=== PATIENT | male | born 1955 | race Two or more races ===

== ENCOUNTER 2018-03-17 21:59 | Observation (INO) | payer OTHER ==
[~2018-03-17] VITALS: Ht 182.9 cm; Wt 88.5 kg
[2018-03-17] MEDS ORDERED: ALBUTEROL SULF 2.5 MG/0.5ML(0.5%) NEB SOLN NEB ONE (23:00)
[2018-03-17] MEDS ORDERED: IPRATROPIUM BROM 0.5 MG/2.5ML INH SOL NEB ONE (23:00)
[2018-03-17 23:10] LABS: Basophils # (auto) 0 uL; Basophils % (auto) 0.7 % (0.0-2.0); Eosinophils # (auto) 0.2 uL; Eosinophils % (auto) 3.5 % (0.0-7.0); Hematocrit 48.1 % (41.0-53.0); Hemoglobin 15.6 g/dL (13.5-17.5); Lymphocytes # (auto) 0.7 uL; Lymphocytes % (auto) 11.2 % (10.0-50.0); Mean Corpuscular Hemoglobin 28.8 pg (28.0-32.0); Mean Corpuscular Hgb Conc. 32.5 g/dL (32.0-36.0); Mean Corpuscular Volume 88.6 fL (80.0-100.0); Monocytes # (auto) 0.5 uL; Monocytes % (auto) 7.2 % (0.0-12.0); Neutrophils % (auto) 77.4 % (37.0-80.0); Nucleated Red Blood Cells % 0.1 %; Platelet Count (auto) 113 10^3/uL (140-450); Red Blood Cells 5.43 10^6/uL (4.5-5.90); Red Cell Distribution Width 13.9 % (11.8-14.3); White Blood Cell 6.5 10^3/uL (4.4-10.8)
[2018-03-17 23:26] LABS: INR 1.01 (0.9-1.15); Prothrombin Time 10.8 sec (9.27-12.13)
[2018-03-17 23:30] LABS: Alanine Aminotransferase 44 U/L (16-61); Albumin 3.2 g/dL (3.4-5.0); Anion Gap 6 (5-15); Aspartate Aminotransferase 40 U/L (15-37); BUN/Creatinine Ratio 23.2; Blood Urea Nitrogen 29 mg/dL (7-18); Calcium 8.5 mg/dL (8.5-10.1); Carbon Dioxide 33 mmol/L (21-32); Chloride 97 mmol/L (98-107); GFR African American 75 mL/min; GFR Non-African American 62 mL/min; Glucose 89 mg/dL (74-106); Magnesium 1.8 mg/dL (1.6-2.6); Potassium 4.9 mmol/L (3.5-5.1); Sodium 136 mmol/L (136-145)
[2018-03-17 23:35] LABS: Alkaline Phosphatase 57 U/L (45-117); Bilirubin, Total 0.3 mg/dL (0.2-1.0); Total Protein 8.7 g/dL (6.4-8.2)
[2018-03-18] MEDS ORDERED: OXYMETAZOLINE HCL 0.05 % NASAL SPRAY 15ML ONE ×2 (02:22→03:00)
[2018-03-18] MEDS ORDERED: COCAINE HCL 4% TOP SOL 4ML TOP ONE ×2 (02:42→02:45)
[2018-03-18] MEDS ORDERED: METHADONE HCL 10 MG TAB PO ONE (04:30)
[2018-03-18 05:33] VITALS: BP 167/87
== END 2018-03-18 07:15 | disposition home or self-care (01) | DRG 115 ==
LOC: EDBD 21:59 → ER 22:06 → EDBD 22:06 → OVERFLOW 22:07 → ER 03-18 07:15
PROVIDERS: ADMIT Emergency Medicine; ATTEND Emergency Medicine
DX: R04.0 Epistaxis (principal); B17.10 Acute hepatitis C without hepatic coma; J44.1 Chronic obstructive pulmonary disease with (acute) exacerbation; E11.9 Type 2 diabetes mellitus without complications; J98.19 Other pulmonary collapse
CPT/HCPCS: 36415; 71045; 80053; 83735; 83880; 84443; 84484; 85025; 85379; 85610; 85730; 94640; 99285; G0378

== ENCOUNTER 2018-03-19 12:02 | Emergency (ER) | payer OTHER ==
[~2018-03-19] VITALS: Ht 182.9 cm; Wt 88.5 kg
[2018-03-19] MEDS ORDERED: IPRATROPIUM BROM 0.5 MG/2.5ML INH SOL NEB ONE (13:30)
[2018-03-19] MEDS ORDERED: ALBUTEROL SULF 2.5 MG/0.5ML(0.5%) NEB SOLN NEB ONE (13:30)
[2018-03-19] MEDS ORDERED: methylPREDNISolone SOD SUCC 125 MG/2 ML VL IM ONE (13:30)
[2018-03-19 14:52] VITALS: BP 110/67
== END 2018-03-19 15:13 | disposition home or self-care (01) ==
LOC: ER 12:02
DX: J44.9 Chronic obstructive pulmonary disease, unspecified (principal); E11.9 Type 2 diabetes mellitus without complications; Z48.01 Encounter for change or removal of surgical wound dressing
CPT/HCPCS: 93005; 94644; 96372; 99284; J2930

== ENCOUNTER 2019-05-27 01:25 | Emergency (ER) | payer OTHER ==
[~2019-05-27] VITALS: Ht 180.3 cm; Wt 82.6 kg
[2019-05-27] MEDS ORDERED: COCAINE HCL 4% TOP SOL 4ML TOP ONE ×3 (02:44→04:45)
[2019-05-27 03:21] LABS: Basophils # (auto) 0 uL; Basophils % (auto) 0.3 % (0.0-2.0); Eosinophils # (auto) 0.4 uL; Hemoglobin 13.3 g/dL (13.5-17.5); Lymphocytes # (auto) 0.9 uL; Mean Corpuscular Hgb Conc. 32.4 g/dL (32.0-36.0); Mean Corpuscular Volume 86.6 fL (80.0-100.0); Monocytes # (auto) 0.5 uL; Monocytes % (auto) 7.8 % (0.0-12.0); Neutrophils # (auto) 4.2 uL; Neutrophils % (auto) 69.9 % (37.0-80.0); Nucleated Red Blood Cells % 0.1 %; Platelet Count (auto) 144 10^3/uL (140-450); Red Blood Cells 4.74 10^6/uL (4.5-5.90); Red Cell Distribution Width 13.2 % (11.8-14.3)
[2019-05-27 03:37] LABS: Albumin 3.5 g/dL (3.4-5.0); BUN/Creatinine Ratio 21.4; Calcium 8.5 mg/dL (8.5-10.1); Potassium 4.8 mmol/L (3.5-5.1)
[2019-05-27 03:40] LABS: Bilirubin, Total 0.2 mg/dL (0.2-1.0); Total Protein 8.8 g/dL (6.4-8.2)
[2019-05-27 04:20] LABS: INR 0.97 (0.9-1.15); Partial Thromboplastin Time 26.8 sec (23.64-32.05)
[2019-05-27 05:43] VITALS: BP 155/82
== END 2019-05-27 06:07 | disposition home or self-care (01) ==
LOC: ER 01:29
DX: R04.0 Epistaxis (principal); E86.0 Dehydration; J44.9 Chronic obstructive pulmonary disease, unspecified; E11.9 Type 2 diabetes mellitus without complications
CPT/HCPCS: 30901; 36415; 80053; 85025; 85610; 85730

== ENCOUNTER 2019-05-28 17:54 | Emergency (ER) | payer OTHER ==
[2019-05-28 21:08] LABS: Basophils # (auto) 0.1 uL; Basophils % (auto) 0.4 % (0.0-2.0); Eosinophils # (auto) 0 uL; Hematocrit 43.5 % (41.0-53.0); Lymphocytes # (auto) 0.9 uL; Lymphocytes % (auto) 6.6 % (10.0-50.0); Mean Corpuscular Hemoglobin 27.6 pg (28.0-32.0); Mean Corpuscular Hgb Conc. 32.2 g/dL (32.0-36.0); Mean Corpuscular Volume 85.6 fL (80.0-100.0); Monocytes % (auto) 7.3 % (0.0-12.0); Neutrophils # (auto) 11.6 uL; Neutrophils % (auto) 85.7 % (37.0-80.0); Platelet Count (auto) 182 10^3/uL (140-450); Red Blood Cells 5.08 10^6/uL (4.5-5.90); Red Cell Distribution Width 13.2 % (11.8-14.3); White Blood Cell 13.6 10^3/uL (4.4-10.8)
[2019-05-28 21:37] LABS: INR 0.99 (0.9-1.15); Partial Thromboplastin Time 27.1 sec (23.64-32.05)
[2019-05-29] MEDS ORDERED: COCAINE HCL 4% TOP SOL 4ML TOP ONE (00:15)
[2019-05-29 06:01] VITALS: BP 137/68
== END 2019-05-29 07:01 | disposition home or self-care (01) ==
LOC: ER 17:54 → EDBD 17:54 → ER 05-29 07:01
DX: R04.0 Epistaxis (principal)
CPT/HCPCS: 30901; 36415; 73030; 85025; 85610; 85730

== ENCOUNTER → 2022-01-21 | Emergency (ER) | payer OTHER ==
[~2022-01-21] VITALS: Ht 180.3 cm; Wt 87.1 kg
[~2022-01-21] MED LIST: ACET-1080 PO; ACETAMINOPHEN 500 MG TAB PO ONE; IBUP800T27 PO
[2022-01-21 16:23] VITALS: BP 129/72
== END | disposition home or self-care (01) ==
LOC: ER 15:30
DX: M51.16 Intervertebral disc disorders with radiculopathy, lumbar region (principal); M48.061 Spinal stenosis, lumbar region without neurogenic claudication
CPT/HCPCS: 72131

== ENCOUNTER 2022-03-07 15:51 | Emergency (ER) | payer OTHER ==
[~2022-03-07] VITALS: Ht 180.3 cm; Wt 84.0 kg
[~2022-03-07 15:51] MED LIST changes: -ACETAMINOPHEN 500 MG TAB PO ONE; -IBUP800T27 PO
[2022-03-07 17:39] LABS: Basophils # (auto) 0 10 ^3/uL (0-0.2); Eosinophils # (auto) 0 10 ^3/uL (0-0.8); Hemoglobin 11.7 g/dL (13.5-17.5); Lymphocytes # (auto) 0.5 10 ^3/uL (0.4-5.4); Mean Corpuscular Hgb Conc. 30.3 g/dL (32.0-36.0); Mean Corpuscular Volume 81.7 fL (80.0-100.0); Monocytes # (auto) 0.3 10 ^3/uL (0-1.3)
[2022-03-07 17:41] LABS: Basophils % (auto) 0.4 % (0.0-2.0); Hematocrit 38.5 % (41.0-53.0); Mean Corpuscular Hemoglobin 24.8 pg (28.0-32.0); Neutrophils # (auto) 9.5 10 ^3/uL (1.6-8.6); Neutrophils % (auto) 91.6 % (37.0-80.0); Red Blood Cells 4.71 10^6/uL (4.5-5.90); Red Cell Distribution Width 16.5 % (11.8-14.3); White Blood Cell 10.4 10^3/uL (4.4-10.8)
[2022-03-07 17:55] LABS: Albumin 2.4 g/dL (3.4-5.0); Potassium 4.3 mmol/L (3.5-5.1)
[2022-03-07 17:58] LABS: BUN/Creatinine Ratio 24.6; Bilirubin, Total 0.4 mg/dL (0.2-1.0); Total Protein 7.9 g/dL (6.4-8.2)
[2022-03-07 20:30] VITALS: BP 137/71
[2022-03-07 20:57] LABS: Urine WBC None Seen /hpf (0 - 3)
[2022-03-07 21:07] LABS: Urine Bacteria NONE SEEN /hpf (None Seen); Urine Blood Negative /uL (Negative); Urine Specific Gravity 1.014 (1.001-1.035)
== END 2022-03-07 22:05 | disposition home or self-care (01) ==
LOC: EDBD 15:51 → ER 15:51
DX: K40.20 Bilateral inguinal hernia, without obstruction or gangrene, not specified as recurrent (principal); E11.9 Type 2 diabetes mellitus without complications; J44.9 Chronic obstructive pulmonary disease, unspecified; Z79.899 Other long term (current) drug therapy
CPT/HCPCS: 36415; 71045; 74176; 80053; 81001; 83880; 84484; 85025; 93005

== ENCOUNTER 2022-09-30 15:28 | Inpatient (IN) | payer OTHER ==
[~2022-09-30] VITALS: Ht 177.8 cm; Wt 68.7 kg
[2022-09-30 16:11] LABS: Basophils # (auto) 0 10 ^3/uL (0-0.2); Eosinophils # (auto) 0 10 ^3/uL (0-0.8); Neutrophils # (auto) 14.5 10 ^3/uL (1.6-8.6); White Blood Cell 15.9 10^3/uL (4.4-10.8)
[2022-09-30 16:12] LABS: Eosinophils % (auto) 0.1 % (0.0-7.0); Hematocrit 42.8 % (41.0-53.0); Hemoglobin 13.2 g/dL (13.5-17.5); Lymphocytes # (auto) 0.3 10 ^3/uL (0.4-5.4); Lymphocytes % (auto) 2.1 % (10.0-50.0); Mean Corpuscular Hemoglobin 24.9 pg (28.0-32.0); Mean Corpuscular Volume 80.4 fL (80.0-100.0); Monocytes % (auto) 6.2 % (0.0-12.0); Neutrophils % (auto) 91.6 % (37.0-80.0); Nucleated Red Blood Cells % 0.2 %; Red Blood Cells 5.32 10^6/uL (4.5-5.90); Red Cell Distribution Width 17.2 % (11.8-14.3)
[2022-09-30 16:33] LABS: Albumin 2.2 g/dL (3.4-5.0); Anion Gap 9 (5-15); BUN/Creatinine Ratio 29.3; Blood Urea Nitrogen 43 mg/dL (7-18); Calcium 9.3 mg/dL (8.5-10.1); Carbon Dioxide 30 mmol/L (21-32); Chloride 99 mmol/L (98-107); GFR African American 61 mL/min; GFR Non-African American 51 mL/min; Glucose 92 mg/dL (74-106); Magnesium 1.7 mg/dL (1.6-2.6); Potassium 4.4 mmol/L (3.5-5.1); Sodium 138 mmol/L (136-145)
[2022-09-30 16:35] LABS: Lactic Acid w/Reflex 5.2 mmol/L (0.4-2.0)
[2022-09-30 16:54] LABS: Alanine Aminotransferase 76 U/L (16-61); Alkaline Phosphatase 89 U/L (45-117); Aspartate Aminotransferase 124 U/L (15-37); Bilirubin, Total 1.4 mg/dL (0.2-1.0); CRP High Sensitivity > 19.0 mg/dL (< 0.3); Total Protein 8.1 g/dL (6.4-8.2)
[2022-09-30] MEDS ORDERED: PIPERACILLIN-TAZOB 3.375GM 100 ML IV ONE (17:15)
[2022-09-30 17:34] LABS: Blood Alcohol < 3.0 mg/dL (0-5); Creatine Kinase IFCC 87 U/L (39-308)
[2022-09-30] MEDS ORDERED: SODIUM CHLORIDE 0.9% 1,900 ML IV ONE (17:45)
[2022-09-30] MEDS ORDERED: DexAMETHasone SOD PHOS 10MG/1ML VIAL INJ ONE (19:57)
[2022-09-30] MEDS ORDERED: IPRATROPIUM BROM 0.5 MG/2.5ML INH SOL NEB ONE (20:15)
[2022-09-30] MEDS ORDERED: ALBUTEROL SULF 2.5 MG/0.5ML(0.5%) NEB SOLN NEB ONE (20:15)
[2022-09-30] MEDS ORDERED: DexAMETHasone SOD PHOS 10MG/1ML VIAL INJ IV ONE (20:15)
[2022-09-30] MEDS ORDERED: ALBUMIN 5% 250 ML IV ONE (21:30)
[2022-09-30] MEDS ORDERED: NITROGLYCERIN 0.4 MG SL TAB SL PRN (21:30)
[2022-09-30] MEDS ORDERED: ONDANSETRON HCL 4 MG/2 ML VIAL IV PRN (21:30)
[2022-09-30] MEDS ORDERED: AZITHROMYCIN 500MG/ 250ML 250 ML IV ONE (21:30)
[2022-09-30] MEDS ORDERED: MORPHINE SULFATE INJ 2 MG/ml SYRG IV PRN (21:30)
[2022-09-30 21:34] VITALS: BP 109/65
[2022-09-30] MEDS: SODIUM CHLORIDE 0.9% 1,000 ML IV SCH (21:59)
[2022-09-30 23:25] LABS: Urine Bacteria NONE SEEN /hpf (None Seen); Urine Blood 3+ /uL (Negative); Urine Hyaline Cast MOD /lpf (0 - 2); Urine Mucus FEW (None Seen); Urine WBC 115 /hpf (0 - 3)
[2022-10-01 05:06] LABS: Basophils # (auto) 0 10 ^3/uL (0-0.2); Eosinophils # (auto) 0 10 ^3/uL (0-0.8); Lymphocytes # (auto) 0.3 10 ^3/uL (0.4-5.4); Monocytes # (auto) 0.2 10 ^3/uL (0-1.3); Neutrophils % (auto) 95.2 % (37.0-80.0)
[2022-10-01 05:14] LABS: Hematocrit 35.4 % (41.0-53.0); Lymphocytes % (auto) 3.1 % (10.0-50.0); Mean Corpuscular Volume 80.5 fL (80.0-100.0); Monocytes % (auto) 1.7 % (0.0-12.0); Neutrophils # (auto) 10.3 10 ^3/uL (1.6-8.6); Nucleated Red Blood Cells % 0.1 %; Red Cell Distribution Width 16.8 % (11.8-14.3); White Blood Cell 10.9 10^3/uL (4.4-10.8)
[2022-10-01 05:18] LABS: Albumin 1.8 g/dL (3.4-5.0); BUN/Creatinine Ratio 33.6; Calcium 8.3 mg/dL (8.5-10.1); Potassium 4.5 mmol/L (3.5-5.1)
[2022-10-01 05:21] LABS: Bilirubin, Total 0.8 mg/dL (0.2-1.0); Total Protein 6.8 g/dL (6.4-8.2)
[2022-10-01] MEDS ORDERED: IPRATROPIUM BROM 0.5 MG/2.5ML INH SOL NEB SCH ×2 (06:00)
[2022-10-01] MEDS ORDERED: ALBUTEROL SULF 2.5 MG/0.5ML(0.5%) NEB SOLN NEB SCH (06:00)
[2022-10-01] MEDS ORDERED: ALBUMIN 5% 250 ML IV PRN (07:15)
[2022-10-01] MEDS: cefTRIAXone 1GM/50ML D5W 50 ML IV SCH (09:10)
[2022-10-01] MEDS: ALBUTEROL SULF HFA 90MCG INH 200DOSE IN PRN ×3 (10:00→18:31)
[2022-10-01] MEDS: SODIUM CHLORIDE 0.9% 1,000 ML IV SCH (11:20)
[2022-10-01] MEDS: PANTOPRAZOLE 40 MG TAB PO SCH (11:20)
[2022-10-01] MEDS: AZITHROMYCIN 500MG/ 250ML 250 ML IV SCH (11:21)
[2022-10-01 18:24] LABS: Folate (Folic Acid) 17.56 ng/mL (5.38-24)
[2022-10-01] MEDS ORDERED: GABA-339 PO (21:06)
[2022-10-01] MEDS ORDERED: METF-370 PO (21:06)
[2022-10-01] MEDS ORDERED: DOCU100C10 PO (21:06)
[2022-10-01] MEDS ORDERED: LIDO16CR TOP (21:06)
[2022-10-01] MEDS ORDERED: MET25T PO (21:06)
[2022-10-01] MEDS ORDERED: SPIR50TA5 PO (21:06)
[2022-10-01] MEDS ORDERED: FURO40TA4 PO (21:06)
[2022-10-01] MEDS ORDERED: DEXA4TAB PO (21:06)
[2022-10-01] MEDS ORDERED: FLUT1AER12 INH (21:06)
[2022-10-01] MEDS ORDERED: FLUO20CA90 PO (21:06)
[2022-10-01 22:00] VITALS: BP 96/46
[2022-10-02 05:00] VITALS: BP_SYST 131; BP_DIAS 62; BP_DIAS 67
[2022-10-02 06:28] LABS: INR 1.08 (0.9-1.15); Partial Thromboplastin Time 30.3 sec (24.6-33.4)
[2022-10-02 08:00] VITALS: BP 115/67
[2022-10-02 08:55] VITALS: BP 115/67
[2022-10-02] MEDS: ALBUTEROL SULF HFA 90MCG INH 200DOSE IN PRN (10:16)
[2022-10-02] MEDS: cefTRIAXone 1GM/50ML D5W 50 ML IV SCH (10:56)
[2022-10-02] MEDS: PANTOPRAZOLE 40 MG TAB PO SCH (10:57)
[2022-10-02] MEDS: AZITHROMYCIN 500MG/ 250ML 250 ML IV SCH (10:57)
[2022-10-02 12:30] VITALS: BP 118/51
[2022-10-02 13:12] LABS: BUN/Creatinine Ratio 36.6; Potassium 4.9 mmol/L (3.5-5.1)
[2022-10-02 13:13] LABS: Calcium 9.2 mg/dL (8.5-10.1)
[2022-10-02] MEDS ORDERED: BISACODYL 5 MG EC TAB PO ONE (16:00)
[2022-10-02 17:00] VITALS: BP 133/69
[2022-10-02 22:00] VITALS: BP 90/56
[2022-10-03 05:00] VITALS: BP 93/52
[2022-10-03] MEDS: ALBUTEROL SULF HFA 90MCG INH 200DOSE IN PRN ×2 (06:14→20:23)
[2022-10-03 06:29] LABS: Basophils # (auto) 0 10 ^3/uL (0-0.2); Basophils % (auto) 0.1 % (0.0-2.0); Eosinophils # (auto) 0 10 ^3/uL (0-0.8); Eosinophils % (auto) 0.1 % (0.0-7.0); Mean Corpuscular Hgb Conc. 30.9 g/dL (32.0-36.0)
[2022-10-03 06:32] LABS: Hematocrit 38.2 % (41.0-53.0); Hemoglobin 11.8 g/dL (13.5-17.5); Lymphocytes # (auto) 0.8 10 ^3/uL (0.4-5.4); Lymphocytes % (auto) 8.8 % (10.0-50.0); Mean Corpuscular Hemoglobin 24.8 pg (28.0-32.0); Mean Corpuscular Volume 80.3 fL (80.0-100.0); Monocytes # (auto) 0.6 10 ^3/uL (0-1.3); Monocytes % (auto) 6.5 % (0.0-12.0); Neutrophils % (auto) 84.5 % (37.0-80.0); Nucleated Red Blood Cells % 0.2 %; Red Blood Cells 4.75 10^6/uL (4.5-5.90); Red Cell Distribution Width 16.9 % (11.8-14.3); White Blood Cell 9.5 10^3/uL (4.4-10.8)
[2022-10-03 06:36] LABS: Potassium 4.4 mmol/L (3.5-5.1)
[2022-10-03 06:45] LABS: BUN/Creatinine Ratio 44.9; Magnesium 1.6 mg/dL (1.6-2.6); Phosphorus 2.6 mg/dL (2.5-4.90)
[2022-10-03 08:00] VITALS: BP 115/67
[2022-10-03 08:44] VITALS: BP 109/66
[2022-10-03] MEDS: cefTRIAXone 1GM/50ML D5W 50 ML IV SCH (09:00)
[2022-10-03] MEDS: AZITHROMYCIN 500MG/ 250ML 250 ML IV SCH (10:00)
[2022-10-03] MEDS: PANTOPRAZOLE 40 MG TAB PO SCH (10:00)
[2022-10-03] MEDS ORDERED: FUROSEMIDE 20 MG/2 ML VIAL IV ONE (12:30)
[2022-10-03 13:00] VITALS: BP_SYST 104; BP_SYST 120; BP_DIAS 64; BP_DIAS 69
[2022-10-03] MEDS: ACETAMINOPHEN 325 MG TAB PO PRN (16:13)
[2022-10-03 17:00] VITALS: BP 111/70
[2022-10-03 22:00] VITALS: BP 101/56
[2022-10-04 04:56] VITALS: BP 101/56
[2022-10-04 05:00] VITALS: BP 113/53
[2022-10-04 08:49] VITALS: BP 93/58
[2022-10-04] MEDS: cefTRIAXone 1GM/50ML D5W 50 ML IV SCH (09:31)
[2022-10-04] MEDS: PANTOPRAZOLE 40 MG TAB PO SCH (09:31)
[2022-10-04] MEDS: FUROSEMIDE 20 MG/2 ML VIAL IV SCH (09:31)
[2022-10-04] MEDS: ALBUTEROL SULF HFA 90MCG INH 200DOSE IN PRN (10:18)
[2022-10-04] MEDS: AZITHROMYCIN 500MG/ 250ML 250 ML IV SCH (11:11)
[2022-10-04 13:00] VITALS: BP 83/49
[2022-10-04 17:00] VITALS: BP 90/60
[2022-10-04 22:00] VITALS: BP 117/67
[2022-10-05 05:00] VITALS: BP 89/52
[2022-10-05 07:55] VITALS: BP 98/58
[2022-10-05] MEDS: cefTRIAXone 1GM/50ML D5W 50 ML IV SCH (11:56)
[2022-10-05] MEDS: AZITHROMYCIN 500MG/ 250ML 250 ML IV SCH (11:57)
[2022-10-05] MEDS: FUROSEMIDE 20 MG/2 ML VIAL IV SCH (11:57)
[2022-10-05] MEDS: PANTOPRAZOLE 40 MG TAB PO SCH (11:57)
[2022-10-05 12:00] VITALS: BP 103/64
[2022-10-05 20:00] VITALS: BP 98/60
[2022-10-05] MEDS: ACETAMINOPHEN 325 MG TAB PO PRN (20:35)
[2022-10-05 22:00] VITALS: BP 98/60
[2022-10-06 05:00] VITALS: BP 84/54
[2022-10-06 09:00] VITALS: BP 94/49
[2022-10-06] MEDS ORDERED: cefTRIAXone 1GM/50ML D5W 50 ML IV SCH (09:00)
[2022-10-06] MEDS: PANTOPRAZOLE 40 MG TAB PO SCH (11:19)
[2022-10-06] MEDS: FUROSEMIDE 20 MG/2 ML VIAL IV SCH (11:39)
[2022-10-06] MEDS ORDERED: SODIUM CHLORIDE 0.9% 500 ML IV ONE (12:00)
[2022-10-06] MEDS ORDERED: ALBUMIN 25% 100 ML IV ONE (12:45)
[2022-10-06 13:00] VITALS: BP 104/68
[2022-10-06 16:58] VITALS: BP 94/51
[2022-10-06 19:02] VITALS: BP 94/51
== END 2022-10-06 20:40 | DRG 871 ==
LOC: EDBD 15:28 → ER 15:28 → TELE 21:29 → TELE-WESTW 10-01 20:14 → WEST WING 10-03 19:22
PROVIDERS: ADMIT Nurse Practitioner; ATTEND Internal Medicine
DX: A41.9 Sepsis, unspecified organism (principal); G93.41 Metabolic encephalopathy; J12.82 Pneumonia due to coronavirus disease 2019; J96.21 Acute and chronic respiratory failure with hypoxia; U07.1 COVID-19; I21.4 Non-ST elevation (NSTEMI) myocardial infarction; J44.0 Chronic obstructive pulmonary disease with (acute) lower respiratory infection; N17.9 Acute kidney failure, unspecified; N30.00 Acute cystitis without hematuria; Z66 Do not resuscitate; F41.9 Anxiety disorder, unspecified; R79.89 Other specified abnormal findings of blood chemistry; Z51.5 Encounter for palliative care
CPT/HCPCS: 36415; 70450; 71045; 72125; 80048; 80053; 80320; 81001; 82306; 82550; 82607; 82746; 83605; 83735; 83880; 84100; 84443; 84484; 85025; 85610; 85730; 86141; 86850; 86900; 86901; 87040; 87426; 87804; 93005; 93306; 94640; 96361; 96365; 96366; 96367; 96368; 96375; 99291; G0378; J0696; J1100; J2543; P9047